=== PATIENT | female | born 1950 | race Caucasian/White ===

== ENCOUNTER 2020-01-21 13:15 | Outpatient (RCR) | payer SELFPAY | END 2020-08-20 14:22 | disposition home or self-care (01) | LOC: ANHCPRIII 13:15 | PROVIDERS: PCP Family Medicine; Visit Provider Nurse Practitioner Family | DX: J44.9 Chronic obstructive pulmonary disease, unspecified (principal) | CPT/HCPCS: 99199 ==

== ENCOUNTER 2020-01-31 14:07 | Outpatient (CLI) | payer MEDICARE, SELFPAY ==
--- NOTE | ~2020-01-31 | CT_ITS ---
EXAMINATION: CT lung screening DATE: 01/31/2020 14:34 INDICATION: Personal history of nicotine dependence, prior smoker with 40 pack year history TECHNIQUE: Computed tomography (CT) of the chest was performed without intravenous contrast. The dose -length product (DLP) was 170.95 mGy-cm. Automated exposure control and iterative reconstruction tech [employer] were employed. COMPARISON: 12/17/2018 FINDINGS: There is a 3 mm nodule of the right upper lobe on image 42. A stable 4 mm nodule is present in the right lower lobe on image 90. There is moderate emphysema. The lungs are free of acute airspa ce opacities. No pleural effusion or pneumothorax is present. There is a stable calcified nodule of t he right thyroid lobe. No pathologically enlarged thoracic lymph nodes are identified. The heart size is normal. Calcified coronary artery atherosclerosis is noted. There is moderate thoracic spondylosi s. IMPRESSION: 1. Lung-RADS category 2: Benign appearance or behavior. Continue annual screening with noncontrast lo w-dose chest CT in 12 months. Reviewed, dictated and finalized at location A. IMPRESSION: 1. Lung-RADS category 2: Benign appearance or behavior. Continue annual screeni ng with noncontrast low-dose chest CT in 12 months.
== END 2020-01-31 14:08 | disposition home or self-care (01) ==
PROVIDERS: PCP Family Medicine; Visit Provider Nurse Practitioner Family
DX: Z12.2 Encounter for screening for malignant neoplasm of respiratory organs (principal); Z87.891 Personal history of nicotine dependence
CPT/HCPCS: G0297

== ENCOUNTER 2021-02-17 12:58 | Outpatient (CLI) | payer MEDICARE, SELFPAY ==
--- NOTE | ~2021-02-17 | CT_ITS ---
EXAMINATION: CT lung screening DATE: 02/17/2021 13:50 INDICATION: Z87.891 - Personal history of nicotine dependence TECHNIQUE: Computed tomography (CT) of the chest was performed without intravenous contrast. Addition al 3D reconstructions utilizing coronal maximum intensity projection (MIP) were performed. Automated exposure control and iterative reconstruction technique were employed. The dose-length product was 17 0.40 mGy-cm. COMPARISON: 01/31/2020 FINDINGS: Moderate emphysema. Unchanged linear bands of discoid atelectasis/scarring in the lingula and right m iddle lobe. No interval change in three, 2-3 mm right upper lobe nodules, a 2 mm calcified left upper lobe nodule and a 4 mm right lower lobe nodule. No new or enlarging pulmonary nodules identified. No pneumonia, pulmonary edema or pleural effusion. Heart size is normal. Unchanged small pericardial ef fusion. Atherosclerotic coronary artery calcifications. Thoracic aorta is normal in caliber. No patho logically enlarged thoracic lymphadenopathy. Multinodular goiter. Moderate thoracic spondylosis. IMPRESSION: 1. . Lung-RADS category 2: Benign appearance or behavior. Continue annual screening with noncontrast low-dose chest CT in 12 months. 2. Moderate emphysema. Reviewed, dictated and finalized at location B. IMPRESSION: 1. . Lung-RADS category 2: Benign appearance or behavior. Continue annual scree elizabeth with noncontrast low-dose chest CT in 12 months. 2. Moderate emphysema.
== END 2021-02-17 12:59 | disposition home or self-care (01) ==
PROVIDERS: PCP Family Medicine; Visit Provider Nurse Practitioner Family
DX: Z12.2 Encounter for screening for malignant neoplasm of respiratory organs (principal); Z87.891 Personal history of nicotine dependence
CPT/HCPCS: 71271

== ENCOUNTER 2021-02-17 14:04 | Outpatient (CLI) | payer MEDICARE, SELFPAY ==
--- NOTE | ~2021-02-17 | MM_ITS ---
EXAMINATION: MM screening davian BI w tim HISTORY: Screening mammogram TECHNIQUE: Craniocaudal and mediolateral oblique 3-D tomosynthesis images were obtained and synthetic 2-D images were generated. CAD analysis was submitted and interpreted. COMPARISON: 10/01/2019, 08/27/2018, 05/24/2017 bilateral digital screening mammogram examinations BREAST PARENCHYMAL COMPOSITION: There are scattered areas of fibroglandular density. FINDINGS: There is a biopsy marker on the left; history of prior benign left breast biopsy. Stable bilateral subcentimeter circumscribed benign-appearing masses. There is no evidence of suspici ous mass, calcification, or architectural distortion to suggest malignancy in either breast. There [place] s been no suspicious interval change. IMPRESSION: 1. No mammographic evidence of malignancy. 2. Recommend routine screening mammography in one year. BI-RADS Category 2: Benign finding(s). Reviewed, dictated and finalized at location A.
== END 2021-02-17 14:05 | disposition home or self-care (01) ==
LOC: ANHIMG 14:08
PROVIDERS: PCP Family Medicine; Visit Provider Family Medicine
DX: Z12.31 Encounter for screening mammogram for malignant neoplasm of breast (principal)
CPT/HCPCS: 71271; 77063; 77067

== ENCOUNTER 2021-07-05 12:16 | Outpatient (CLI) | payer MEDICARE, SELFPAY ==
--- NOTE | 2021-07-05 13:15 | ECHO_ITS ---
Patient Info Name: Talya Bai Age: 70 years : 1950 Gender: Female Ht: 65 in Wt: 190 lbs BSA: 2.02 m2 HR: 79 bpm BP: 183 / 100 mmHg Heart Rhythm: Sinus Rhythm Technical Quality: Good Exam Date: 07/05/2021 1:56 PM Exam Location: [facility] Pulmonary Exam Room: [facility] Patient Status: Outpatient Admit Date: 07/05/2021 Staff Ordering Physician: Gabriel Rao APRN It Support Manager: Gianna Johnson RDCS Attending Provider: Gabriel Rao APRN Referring Physician: Jalen CEDENO; Exam Type: CA echo doppler color flow Study Info Indications thomason - Complete two-dimensional, color flow and Doppler transthoracic echocardiogram is performed. Summary 1. Complete two-dimensional, color flow and Doppler transthoracic echocardiogram is performed. 2. Left ventricular chamber dimension is normal. 3. Left ventricular systolic function is mildly reduced, estimated at 50-55%. 4. There is mildly increased left ventricular wall thickness. 5. The left ventricular diastolic function is grade I diastolic dysfunction. 6. The basal anteroseptal, and mid anteroseptal are hypokinetic. 7. Right atrial chamber dimension is mildly enlarged. 8. There is mild mitral valve regurgitation. 9. There is mild tricuspid valve regurgitation. 10. Mild pulmonary hypertension, estimated pulmonary arterial systolic pressure is 38 mmHg. Left Ventricle Left ventricular chamber dimension is normal. Left ventricular systolic function is mildly reduced, estimated at 50-55%. There is mildly increased left ventricular wall thickness. The left ventricular diastolic function is grade I diastolic dysfunction. The basal anteroseptal, and mid anteroseptal are hypokinetic. All other velez appear normal. Right Ventricle Right ventricular chamber dimension is normal. Right ventricular systolic function is normal. Left Atria Left atrial chamber dimension is normal. Right Atria Right atrial chamber dimension is mildly enlarged. Atrial Septum Intact interatrial septum visualized by color flow imaging. Aortic Valve The aortic valve is trileaflet. There is mild aortic valve sclerosis. There is no aortic valve stenosis. There is trace aortic valve regurgitation. Pulmonic Valve The pulmonic valve is normal. There is no pulmonic valve stenosis. There is trace pulmonic regurgitation. Mitral Valve The mitral valve has calcified annulus. There is no mitral valve stenosis. There is mild mitral valve regurgitation. Tricuspid Valve The tricuspid valve leaflets are normal. There is no significant tricuspid valve stenosis. There is mild tricuspid valve regurgitation. Mild pulmonary hypertension, estimated pulmonary arterial systolic pressure is 38 mmHg. Pericardium/Pleural The pericardium appears normal. There is trivial pericardial effusion. Inferior Vena Cava Normal inferior vena cava with >50% collapse upon inspiration consistent with normal right atrial pressure, 10 mmHg. Aorta The aortic root size at the sinus of Valsalva is normal. There is mild aortic atherosclerosis. Left Ventricular Outflow Tract Name Value Normal LVOT 2D LVOT Diameter 2.0 cm LVOT Doppler ------
[2021-07-05 13:20] VITALS: O2SAT 87
[2021-07-05 13:21] VITALS: O2SAT 87
[2021-07-05 13:22] VITALS: O2SAT 93
[2021-07-05 13:25] VITALS: PULSE 101; O2SAT 90
[2021-07-05 13:30] VITALS: PULSE 82; O2SAT 94
== END 2021-07-05 12:17 | disposition home or self-care (01) ==
LOC: ANHPFT 12:18
PROVIDERS: PCP Family Medicine; Visit Provider Nurse Practitioner Family
DX: R06.00 Dyspnea, unspecified (principal); I08.3 Combined rheumatic disorders of mitral, aortic and tricuspid valves
CPT/HCPCS: 93306; 94618